=== PATIENT | female | born 1995 | race Two or more races ===

== ENCOUNTER 2024-04-05 20:06 | Emergency (ER) | payer OTHER ==
[~2024-04-05] VITALS: Ht 165.1 cm; Wt 103.4 kg
[2024-04-05] MEDS ORDERED: KETOROLAC TROMETHAMINE 15 MG VIAL IM STA (21:46)
[2024-04-05] MEDS ORDERED: ORPHENADRINE CITRATE 30 MG/ML AMPUL IM STA (21:47)
[2024-04-05 22:07] LABS: HEMATOCRIT 36.5 % (36.0-45.00); HEMOGLOBIN 12.6 g/dL (12.0-15.00); MEAN CELL VOLUME 82.2 fL (80.00-100.00); MEAN CORPUSCULAR HEMOGLOBIN 28.4 pg (27.00-32.0); MEAN CORPUSCULAR HGB CONC 34.6 g/dl (32.0-36.0); PLATELET COUNT 366 K/uL (150-450); RED BLOOD COUNT 4.44 M/uL (4.00-6.00); RED CELL DISTRIBUTION WIDTH 14.5 % (11.5-14.5)
[2024-04-05 22:10] LABS: PH,URINE 5.5 (5.0-8.0); URINE APPEARANCE Clear; URINE BILIRRUBIN Negative (NEGATIVE); URINE BLOOD Negative; URINE COLOR Yellow; URINE GLUCOSE Negative (NEGATIVE); URINE KETONE Trace (NEGATIVE); URINE LEUKOCYTE Moderate; URINE NITRATE Negative; URINE PROTEIN Negative (NEGATIVE); URINE UROBILINOGEN 0.2 E.U./dl
[2024-04-05 22:11] LABS: URINE BACTERIA 1281.3 uL (0.0-1933); URINE EPITHELIAL CELLS 30.1 uL (0.0-38.8); URINE WBC 57.9 uL (0.0-23.2)
[2024-04-05 22:12] LABS: URINE CAST 0.45 uL (0.0-1.40)
[2024-04-05] MEDS ORDERED: CELEBREX200MG PO (23:19)
[2024-04-05] MEDS ORDERED: METAXALONE800 MG PO (23:19)
[2024-04-05] MEDS ORDERED: AMOXICILLIN500 MG PO ×2 (23:21)
== END 2024-04-05 23:23 | disposition home or self-care (01) ==
LOC: ER 20:08
PROVIDERS: Emergency Medicine
DX: N39.0 Urinary tract infection, site not specified (principal)